=== PATIENT | female | born 1970 | race Two or more races ===

== ENCOUNTER 2020-02-19 21:46 | Emergency (ER) | payer BC, OTHER ==
[~2020-02-19] VITALS: Ht 162.6 cm; Wt 86.4 kg
[~2020-02-19 21:46] MED LIST: FIOCOC PO; ZOF4T PO
[2020-02-19] MEDS ORDERED: acetaminophen 325mg tablet PO STA (23:00)
[2020-02-20 00:07] LABS: ALANINE AMINOTRANSFERASE 38 U/L (12-78); ALBUMIN 3.8 G/DL (3.4-5.0); ALBUMIN/GLOBULIN RATIO 0.9 (1.1-1.5); ALKALINE PHOSPHATASE 108 IU/L (46-116); ANION GAP 10 (8-16); ASPARTATE AMINO TRANSFERASE 22 U/L (10-37); BILIRUBIN,TOTAL 0.3 MG/DL (0.1-1.0); BLOOD UREA NITROGEN 10 MG/DL (7-18); BUN/CREATININE RATIO 10.4 (6.6-38.0); CALCIUM 9.9 MG/DL (8.5-10.1); CHLORIDE 108 MMOL/L (99-107); CREATININE 0.96 MG/DL (0.40-0.90); GLUCOSE 93 MG/DL (70-104); POTASSIUM 3.7 MMOL/L (3.5-5.1); SODIUM 142 MMOL/L (135-145); TOTAL CARBON DIOXIDE 24.4 MMOL/L (24-32); TOTAL PROTEIN 8.1 G/DL (6.4-8.2); eGFR 61 ML/MIN
[2020-02-20 00:08] LABS: BASOPHILS # (AUTO) 0.2 X10'3 (0-0.2); BASOPHILS % (AUTO) 1.8 % (0-1); EOSINOPHILS # (AUTO) 0.2 X10'3 (0-0.9); EOSINOPHILS % (AUTO) 2.2 % (0-6); HEMOGLOBIN 13.6 g/dl (12.0-16.0); LYMPHOCYTES # (AUTO) 3.3 X10'3 (1.1-4.8); LYMPHOCYTES % (AUTO) 29.6 % (21-51); MEAN CORPUSCULAR HEMOGLOBIN 28.7 PG (27.0-31.0); MEAN CORPUSCULAR HGB CONC 33.1 g/dL (33.0-36.5); MEAN CORPUSCULAR VOLUME 86.8 FL (78-98); MEAN PLATELET VOLUME 8.9 FL (7.4-10.4); MONOCYTES # (AUTO) 0.5 X10'3 (0-0.9); MONOCYTES % (AUTO) 4.6 % (2-12); NEUTROPHILS # (AUTO) 6.9 X10'3 (1.8-7.7); NEUTROPHILS % (AUTO) 61.8 % (42-75); PLATELET COUNT 298 X10'3 (140-440); RED BLOOD COUNT 4.72 X10'6 (4.20-5.60); RED CELL DISTRIBUTION WIDTH 14.8 % (11.5-14.5); WHITE BLOOD COUNT 11.2 X10'3 (4.5-11.0)
[2020-02-20 00:24] LABS: C-REACTIVE PROTEIN 1.68 MG/DL (0.0-0.5); FERRITIN 137 NG/ML (8-252); LACTATE DEHYDROGENASE 158 U/L (81-234); MAGNESIUM 2.3 MG/DL (1.5-2.4)
[2020-02-20 00:40] LABS: CLARITY,URINE CLEAR (Clear); COLOR,URINE YELLOW (Yellow); GLUCOSE, URINE NEGATIVE (Neg); KETONES,URINE NEGATIVE (Neg); LEUKOCYTE ESTERASE ,URINE NEGATIVE (Neg); NITRITES, URINE NEGATIVE (Neg); OCCULT BLOOD,URINE NEGATIVE (Neg); PH,URINE 8.5 (4.8-8.0); PROTEIN,URINE NEGATIVE (Neg); UROBILINOGEN,URINE 0.2 E.U/dL (0.2-1.0)
[2020-02-20 00:41] LABS: UA COLLECTION TYPE CLN CATCH MIDSTREAM
[2020-02-20] MEDS ORDERED: iohexol 350MG/ML 100ml bottle IV ONE (00:58)
[2020-02-20] MEDS ORDERED: ALBU8HFA PO (01:31)
[2020-02-20 01:51] VITALS: BP 101/80
== END 2020-02-20 01:57 | disposition home or self-care (01) ==
LOC: ER 21:48
DX: R42 Dizziness and giddiness (principal); R43.9 Unspecified disturbances of smell and taste; R06.02 Shortness of breath; G43.909 Migraine, unspecified, not intractable, without status migrainosus; Z88.0 Allergy status to penicillin; Z88.5 Allergy status to narcotic agent; Z98.890 Other specified postprocedural states; Z20.828 Contact with and (suspected) exposure to other viral communicable diseases
CPT/HCPCS: 36415; 71275; 80053; 81003; 82728; 83605; 83615; 83735; 84145; 85025; 85384; 86140; 87040; 87635; 99285; Q9967

== ENCOUNTER 2022-03-31 21:25 | Emergency (ER) | payer SELFPAY ==
[~2022-03-31] VITALS: Ht 162.6 cm; Wt 86.4 kg
[2022-03-31 21:35] VITALS: BP 159/93
== END 2022-04-01 01:44 | disposition left against medical advice (07) ==
LOC: ER 21:25
DX: S60.861A Insect bite (nonvenomous) of right wrist, initial encounter (principal); Z53.21 Procedure and treatment not carried out due to patient leaving prior to being seen by health care provider; W54.0XXA Bitten by dog, initial encounter; Y93.89 Activity, other specified; Y92.89 Other specified places as the place of occurrence of the external cause; Y99.8 Other external cause status
CPT/HCPCS: 73110; A6449